=== PATIENT | female | born 1940 | race Caucasian/White ===

== ENCOUNTER 2017-01-23 00:30 | Emergency (ER) | payer MEDICARE ==
[2017-01-23 01:13] LABS: #Basophils 0.1 thou/uL (0.0-0.2); #Eosinphils 0.3 thou/uL (0.0-0.7); #Monocytes 0.9 thou/uL (0.11-0.59); #Neutrophils 11.6 thou/uL (1.40-6.50); %Basophils 0.5 % (0.0-1.0); %Eosinophils 2.1 % (0.0-10.0); %Lymphocytes 7.4 % (21.0-51.0); %Monocytes 6.3 % (0.0-10.0); Hematocrit 45.2 % (36.0-47.0); Mean Platelet Volume 7.6 fL (7.4-10.4); Red Blood Cell (RBC) Count 5.04 mill/uL (4.20-5.40); White Blood Cell (WBC) Count 13.9 thou/uL (4.8-10.8)
[2017-01-23 01:26] LABS: ALT (SGPT) 11 U/L (8-55); AST (SGOT) 17 U/L (5-34); Alkaline Phosphatase 95 U/L (40-150); Anion Gap 13 mmol/L (10-20); BUN (Urea Nitrogen) 14 mg/dL (9.8-20.1); Bilirubin, Total 0.8 mg/dL (0.2-1.2); Calc. Creatinine Clearance 0 mL/min (70-130); Calcium 9.4 mg/dL (7.8-10.44); Carbon Dioxide 25 mmol/L (23-31); Chloride 104 mmol/L (98-107); Estimated GFR-MDRD 77; Globulin 3.3 g/dL (2.4-3.5); Protein, Total 7.1 g/dL (6.0-8.3)
[2017-01-23] MEDS ORDERED: ISOVUE-370 76%-LOCM 1 ML ONE (11:46)
--- NOTE | 2017-01-23 15:08 | CT ---
PRELIMINARY REPORT/[facility]/EMERGENCY AFTER HOURS PROCEDURE: EXAM: CT Abdomen and Pelvis With Intravenous Contrast EXAM DATE/TIME: Exam ordered 01/23/2017 4:11 AM CLINICAL HISTORY: 76 years old, female; Pain; Abdominal pain; Generalized TECHNIQUE: Axial computed tomography images of the abdomen and pelvis with intravenous contrast. Coronal reformatted images were created and reviewed. CONTRAST: 100 mL of ISOVUE administered intravenously. COMPARISON: No relevant prior studies available. FINDINGS: Lower thorax: There is a 13 mm solid RIGHT middle lobe pulmonary nodule. There is subpleural atelecta sis of the dependent portions of the lungs. ABDOMEN: Liver: There are no focal liver lesions present. Gallbladder and bile ducts: The gallbladder is normal. There is no evidence of biliary ductal dilatio n. No calcified stones. Pancreas: The pancreas is normal. No ductal dilation. Spleen: The spleen is normal. Adrenals: The adrenal glands are normal. Kidneys and ureters: The kidneys are normal. No hydronephrosis. Stomach and bowel: There is pericolonic inflammatory stranding involving the transverse and descendin g colon compatible with colitis. The stomach is normal. The duodenum is unremarkable. Mild diverticulosis is present in the sigmoid and descending colon. There is incidental note of a lip tree within the descending colonic wall proximally. No obstruction. Appendix: A normal appendix is identified. PELVIS: Bladder: The bladder is normal. Reproductive: The uterus is normal. ABDOMEN and PELVIS: Intraperitoneal space: Normal. No free air. No significant fluid collection. Bones/joints: Patient is post LEFT hip arthroplasty. No acute fracture. No dislocation. Soft tissues: Normal. Vasculature: Normal. No abdominal aortic aneurysm. Lymph nodes: Normal. No enlarged lymph nodes. IMPRESSION: 1. There is pericolonic inflammatory stranding involving the transverse and descending colon compatib le with colitis. 2. There is a 13 mm solid RIGHT middle lobe pulmonary nodule. In both low-risk and high-risk patients consider chest CT follow-up at 3 months and if stable consider an additional follow-up CT at 18-24 m onths. Alternatively (or additionally) a PET/CT or tissue sampling could be performed. Thank you for allowing us to participate in the care of your patient. Dictated and Authenticated by: Natalio Henderson MD 01/23/2017 4:40 AM Central Time ([place] & [place]) FINAL REPORT ABDOMEN CT WITH CONTRAST PELVIC CT WITH CONTRAST: Date: 01/23/17 HISTORY: Rectal bleeding. Three episodes of diarrhea and abdominal cramping today. COMPARISON: None. TECHNIQUE: Abdomen and pelvic CT performed with IV contrast. Oral contrast was not administered. Coronal reforma tted images are submitted for interpretation. FINDINGS: This report is in agreement with the preliminary report by [facility]. There is a nodule in the right middl e lobe. Pericolonic fat stranding involving the transverse colon with associated bowel wall thickening. Corre late for colitis. Additional diverticula in the sigmoid colon noted. No diverticulitis. Normal calibe r appendix. Calcified uterine leiomyoma is noted. POS: [facility]
== END 2017-01-23 03:25 | disposition home or self-care (01) ==
LOC: ERS 00:30
DX: K64.4 Residual hemorrhoidal skin tags (principal); A09 Infectious gastroenteritis and colitis, unspecified; I10 Essential (primary) hypertension; E78.00 Pure hypercholesterolemia, unspecified; F41.9 Anxiety disorder, unspecified
CPT/HCPCS: 36415; 74177; 80053; 82274; 85025; 86850; 86900; 86901

== ENCOUNTER 2019-09-11 12:29 | Outpatient (CLI) | payer MEDICARE ==
--- NOTE | 2019-09-11 13:31 | CT ---
EXAM: CT of the chest with contrast HISTORY: Pulmonary nodule COMPARISON: 04/26/2017, 01/23/2017 TECHNIQUE: Multiple contiguous axial images were obtained in a CT the chest with contrast. Coronal an d sagittal reformats were performed. FINDINGS: HEART: Normal in size without focal cardiac abnormality. Callus cages are seen in the coronary arteri es. MEDIASTINUM: No hilar or mediastinal lymphadenopathy. LUNGS: Stable well-circumscribed 1.3 cm nodule in the right middle lobe. No other pulmonary nodules. PLEURAL SPACE: No pneumothorax or pleural effusion. CHEST WALL SOFT TISSUES: Unremarkable OSSEOUS STRUCTURES: Degenerative changes in the spine and shoulders. VISUALIZED SUBDIAPHRAGMATIC STRUCTURES: There is a stable diverticulum emanating from the posterior a spect of the stomach. IMPRESSION: Stable right middle lobe pulmonary nodule. This is been stable since 2017. No further follow-up is ne cessary
[2019-09-11] MEDS ORDERED: Iopamidol-370 76% 500 ML 1 ML ONE (15:42)
== END 2019-09-11 12:30 | disposition home or self-care (01) ==
LOC: BICCT 12:29
PROVIDERS: ATTEND Family Medicine
DX: R91.1 Solitary pulmonary nodule (principal)
CPT/HCPCS: 71260; Q9967

== ENCOUNTER 2023-02-06 07:27 | Inpatient (IN) | payer MEDICARE ==
[2023-02-06 08:35] LABS: #Basophils 0.1 thou/uL (0.0-0.2); #Eosinphils 0.1 thou/uL (0.0-0.7); #Monocytes 0.9 thou/uL (0.11-0.59); #Neutrophils 12.8 thou/uL (1.40-6.50); %Basophils 0.4 % (0.0-1.0); %Eosinophils 0.5 % (0.0-10.0); %Lymphocytes 3.4 % (21.0-51.0); %Monocytes 6.1 % (0.0-10.0); %Neutrophils 89.2 % (42.0-75.0); Hematocrit 36.4 % (36.0-47.0); Hemoglobin 10.4 g/dL (12.0-16.0); Mean Corpuscular HGB CONC 28.6 g/dL (32.0-36.0); Mean Corpuscular Hemoglobin 21.5 pg (27.0-31.0); Mean Corpuscular Volume 75.4 fl (78.0-98.0); Mean Platelet Volume 10.1 fL (7.4-10.4); Platelet Count 239 10x3/uL (130-400); RBC Distribution Width 20.6 % (11.5-14.5); Red Blood Cell (RBC) Count 4.83 mill/uL (4.20-5.40); White Blood Cell (WBC) Count 14.3 10x3/uL (4.8-10.8)
[2023-02-06 09:01] LABS: Anisocytosis MODERATE=16-30 cells HPF (0-5); CellaVision Operator ID LAB.NR; Hypochromia MARKED = >30 cells HPF (0-5); Macrocytosis SLIGHT = 6-15 cells HPF (0-5); Microcytosis SLIGHT = 6-15 cells HPF (0-5); Platelet Adequacy Comment Platelets Normal; Polychromasia SLIGHT = 2-3 cells HPF (0-2)
[2023-02-06 09:11] LABS: ALT (SGPT) 42 U/L (8-55); AST (SGOT) 68 U/L (5-34); Albumin 3.9 g/dL (3.4-4.8); Alkaline Phosphatase 94 U/L (40-110); Anion Gap 13 mmol/L (10-20); BUN (Urea Nitrogen) 12 mg/dL (9.8-20.1); Bilirubin, Total 0.9 mg/dL (0.2-1.2); Calc. Creatinine Clearance 0 mL/min (70-130); Calcium 9.2 mg/dL (7.8-10.44); Carbon Dioxide 23 mmol/L (23-31); Chloride 107 mmol/L (98-107); Estimated GFR 68; Globulin 3.2 g/dL (2.4-3.5); Glucose 101 mg/dL (83-110); Lipase 15 U/L (8-78); Potassium 4.1 mmol/L (3.5-5.1); Protein, Total 7.1 g/dL (5.8-8.1); Sodium 139 mmol/L (136-145)
[2023-02-06 09:13] LABS: Troponin I 0.111 ng/mL (< 0.028)
[2023-02-06] MEDS ORDERED: Furosemide 20 MG (2 mL) VIAL ONE (09:28)
[2023-02-06] MEDS ORDERED: methylPREDNISolone Sod Succ/PF 125 MG/2 ML VIAL ONE (09:29)
[2023-02-06] MEDS ORDERED: Amiodarone 200 MG TAB ONE (09:29)
[2023-02-06] MEDS ORDERED: Ipratropium/Albuterol 3 ML NEB ONE (09:31)
[2023-02-06] MEDS ORDERED: Apixaban 2.5 MG TAB PO SCH (10:00)
[2023-02-06 10:37] LABS: Magnesium 2.1 mg/dL (1.6-2.6)
[2023-02-06 11:00] LABS: SARS-CoV-2 NAA Rapid Test Not Detected (NotDetected)
[2023-02-06] MEDS ORDERED: Aspirin 325 MG TAB ONE (13:09)
[2023-02-06] MEDS ORDERED: Acetaminophen 325 MG TAB PO PRN (14:27)
[2023-02-06] MEDS ORDERED: Ondansetron PF 4 MG/2 ML Vial IVP PRN (14:27)
[2023-02-06] MEDS ORDERED: dilTIAZem 125 MG in Sodium Chloride 0.9% 100 ML IVPB SCH (15:15)
[2023-02-06 17:04] VITALS: BMI 400.5
[2023-02-06 17:36] LABS: Hemoglobin A1c 5.8 % (4.0-6.0)
[2023-02-06 17:43] LABS: Troponin I 0.737 ng/mL (< 0.028)
[2023-02-06] MEDS: Famotidine 20 MG TAB PO SCH (21:00)
[2023-02-06] MEDS: clonazePAM 0.5 MG TAB PO SCH (21:00)
[2023-02-06] MEDS: Oseltamivir 75 MG CAP PO SCH (21:00)
[2023-02-06] MEDS: Enoxaparin 100 MG (1 mL) SYRINGE SC SCH (21:01)
[2023-02-06] MEDS: Famotidine/PF 20 mg/2ml Vial SLOW IVP SCH (21:02)
[2023-02-07 04:50] LABS: #Monocytes 0.2 thou/uL (0.11-0.59); %Lymphocytes 9.2 % (21.0-51.0); %Monocytes 2.8 % (0.0-10.0); %Neutrophils 87.5 % (42.0-75.0); Hematocrit 34.3 % (36.0-47.0); Mean Corpuscular HGB CONC 29.2 g/dL (32.0-36.0); Mean Corpuscular Hemoglobin 21.9 pg (27.0-31.0); Mean Corpuscular Volume 75.2 fl (78.0-98.0); Mean Platelet Volume 10.4 fL (7.4-10.4); Platelet Count 229 10x3/uL (130-400); RBC Distribution Width 20.5 % (11.5-14.5); Red Blood Cell (RBC) Count 4.56 mill/uL (4.20-5.40); White Blood Cell (WBC) Count 5.7 10x3/uL (4.8-10.8)
[2023-02-07 05:18] LABS: Anion Gap 14 mmol/L (10-20); BUN (Urea Nitrogen) 15 mg/dL (9.8-20.1); Calc. Creatinine Clearance 83 mL/min (70-130); Calcium 9.2 mg/dL (7.8-10.44); Carbon Dioxide 24 mmol/L (23-31); Cardiac Risk 2.3 (Less than 4.5); Chloride 105 mmol/L (98-107); Cholesterol 134 mg/dl (< 200 Desired); Estimated GFR 68; Glucose 130 mg/dL (83-110); HDL Cholesterol 59 mg/dL (>60 Neg Risk); LDL Cholesterol, Calculated 66 mg/dL; Potassium 4.5 mmol/L (3.5-5.1); Sodium 138 mmol/L (136-145); Triglycerides 45 mg/dL (Less than 150)
[2023-02-07 05:19] LABS: Iron 16 ug/dL (50-170); Iron Binding Capacity, Total 408 mcg/dL (265-497)
[2023-02-07 05:20] LABS: ALT (SGPT) 30 U/L (8-55); AST (SGOT) 32 U/L (5-34); Albumin 3.6 g/dL (3.4-4.8); Alkaline Phosphatase 81 U/L (40-110); Bilirubin, Direct 0.4 mg/dL (0.1-0.3); Bilirubin, Total 0.9 mg/dL (0.2-1.2); Iron 16 ug/dL (50-170); Iron Binding Capacity, Total 411 mcg/dL (265-497); Protein, Total 6.7 g/dL (5.8-8.1)
[2023-02-07 05:42] LABS: Ferritin 34.46 ng/mL (10-291)
[2023-02-07] MEDS ORDERED: Furosemide 20 MG (2 mL) VIAL SLOW IVP SCH (06:00)
[2023-02-07] MEDS ORDERED: Electrolyte Replacement Protocol 1 EACH FS SCH (07:15)
[2023-02-07] MEDS ORDERED: Electrolyte Replacement Protocol FS PRN (07:30)
[2023-02-07] MEDS ORDERED: Enoxaparin 80 MG (0.8 mL) SYRINGE SC SCH (09:00)
[2023-02-07] MEDS ORDERED: Amiodarone 200 MG TAB PO SCH ×2 (09:00→10:48)
[2023-02-07] MEDS: Aspirin Chewable 81 MG TAB PO SCH (09:22)
[2023-02-07] MEDS: Famotidine 20 MG TAB PO SCH ×2 (09:22→21:12)
[2023-02-07] MEDS: clonazePAM 0.5 MG TAB PO SCH ×2 (09:22→21:13)
[2023-02-07] MEDS: PARoxetine 20 MG TAB PO SCH (09:23)
[2023-02-07] MEDS: Enoxaparin 100 MG (1 mL) SYRINGE SC SCH ×2 (09:23→21:10)
[2023-02-07] MEDS: Oseltamivir 75 MG CAP PO SCH ×2 (09:23→21:13)
[2023-02-07] MEDS: methylPREDNISolone Sod Succ/PF 125 MG/2 ML VIAL IVP SCH (11:10)
[2023-02-07] MEDS ORDERED: Magnesium 2 GM/50 ML(in water) 2 GM in Premix 1 BAG IVPB SCH (14:00)
[2023-02-07] MEDS: Famotidine/PF 20 mg/2ml Vial SLOW IVP SCH ×2 (14:34→21:14)
[2023-02-07] MEDS ORDERED: Rosuvastatin 10 MG TAB PO SCH (21:00)
[2023-02-07] MEDS: Rosuvastatin 10 MG TAB PO SCH (21:12)
[2023-02-07] MEDS: Amiodarone 200 MG TAB PO SCH (21:16)
[2023-02-08 04:54] LABS: #Monocytes 0.6 thou/uL (0.11-0.59); #Neutrophils 8.3 thou/uL (1.40-6.50); %Basophils 0.1 % (0.0-1.0); %Lymphocytes 5.5 % (21.0-51.0); %Monocytes 6.5 % (0.0-10.0); %Neutrophils 87.7 % (42.0-75.0); Hematocrit 32.3 % (36.0-47.0); Hemoglobin 9.5 g/dL (12.0-16.0); Mean Corpuscular HGB CONC 29.4 g/dL (32.0-36.0); Mean Corpuscular Hemoglobin 21.7 pg (27.0-31.0); Mean Corpuscular Volume 73.9 fl (78.0-98.0); Mean Platelet Volume 11.2 fL (7.4-10.4); Platelet Count 246 10x3/uL (130-400); RBC Distribution Width 20.2 % (11.5-14.5); Red Blood Cell (RBC) Count 4.37 mill/uL (4.20-5.40); White Blood Cell (WBC) Count 9.4 10x3/uL (4.8-10.8)
[2023-02-08 05:08] LABS: Anion Gap 13 mmol/L (10-20); BUN (Urea Nitrogen) 23 mg/dL (9.8-20.1); Calc. Creatinine Clearance 73 mL/min (70-130); Calcium 8.8 mg/dL (7.8-10.44); Carbon Dioxide 24 mmol/L (23-31); Chloride 103 mmol/L (98-107); Estimated GFR 58; Glucose 132 mg/dL (83-110); Magnesium 2.4 mg/dL (1.6-2.6); Potassium 4.1 mmol/L (3.5-5.1); Sodium 136 mmol/L (136-145)
[2023-02-08 06:27] LABS: Anisocytosis MODERATE=16-30 cells (100X) (0-5/hpf); Hypochromia SLIGHT = 6-15 cells (100X) (0-5/hpf); Microcytosis SLIGHT = 6-15 cells (100X) (0-5/hpf)
[2023-02-08 06:29] LABS: Ovalocytes SLIGHT = 2-5 cells (100X) (0-1/hpf); Platelet Adequacy Comment Platelets Normal; Polychromasia SLIGHT = 2-3 cells (100X) (0-2/hpf)
[2023-02-08] MEDS: Famotidine 20 MG TAB PO SCH ×2 (09:05→21:57)
[2023-02-08] MEDS: Enoxaparin 100 MG (1 mL) SYRINGE SC SCH ×2 (09:05→21:57)
[2023-02-08] MEDS: Amiodarone 200 MG TAB PO SCH (09:05)
[2023-02-08] MEDS: Aspirin Chewable 81 MG TAB PO SCH (09:06)
[2023-02-08] MEDS: clonazePAM 0.5 MG TAB PO SCH ×2 (09:06→21:56)
[2023-02-08] MEDS: PARoxetine 20 MG TAB PO SCH (09:06)
[2023-02-08] MEDS: Oseltamivir 75 MG CAP PO SCH ×2 (09:06→21:57)
[2023-02-08] MEDS: methylPREDNISolone Sod Succ/PF 125 MG/2 ML VIAL IVP SCH (09:08)
[2023-02-08] MEDS: Famotidine/PF 20 mg/2ml Vial SLOW IVP SCH ×2 (09:20→21:58)
[2023-02-08] MEDS ORDERED: Regadenoson 0.4 MG/5 ML SYRINGE ONE (10:26)
[2023-02-08] MEDS ORDERED: Communication Order-Pharmacy FS SCH (15:00)
[2023-02-08] MEDS ORDERED: Amiodarone 150 MG, Admixture Fee 1 EACH in Dextrose 5% in Water 100 ML IVPB SCH (15:30)
[2023-02-08] MEDS: Rosuvastatin 10 MG TAB PO SCH (21:56)
[2023-02-09 04:27] LABS: %Basophils 0.1 % (0.0-1.0); %Lymphocytes 7.8 % (21.0-51.0); %Monocytes 8.2 % (0.0-10.0); %Neutrophils 83.5 % (42.0-75.0); Hematocrit 34.7 % (36.0-47.0); Hemoglobin 10.1 g/dL (12.0-16.0); Mean Corpuscular HGB CONC 29.1 g/dL (32.0-36.0); Mean Corpuscular Hemoglobin 21.4 pg (27.0-31.0); Mean Corpuscular Volume 73.4 fl (78.0-98.0); Mean Platelet Volume 11.2 fL (7.4-10.4); Platelet Count 264 10x3/uL (130-400); RBC Distribution Width 20.6 % (11.5-14.5); Red Blood Cell (RBC) Count 4.73 mill/uL (4.20-5.40)
[2023-02-09] MEDS: Amiodarone 450 MG, Admixture Fee 1 EACH in Dextrose 5% in Water 250 ML IVPB SCH ×2 (04:28→20:11)
[2023-02-09 05:09] LABS: ALT (SGPT) 46 U/L (8-55); AST (SGOT) 41 U/L (5-34); Albumin 3.5 g/dL (3.4-4.8); Alkaline Phosphatase 74 U/L (40-110); Anion Gap 13 mmol/L (10-20); BUN (Urea Nitrogen) 18 mg/dL (9.8-20.1); Bilirubin, Total 0.8 mg/dL (0.2-1.2); Calc. Creatinine Clearance 83 mL/min (70-130); Calcium 8.7 mg/dL (7.8-10.44); Carbon Dioxide 24 mmol/L (23-31); Chloride 103 mmol/L (98-107); Estimated GFR 68; Globulin 2.9 g/dL (2.4-3.5); Glucose 114 mg/dL (83-110); Potassium 4.1 mmol/L (3.5-5.1); Protein, Total 6.4 g/dL (5.8-8.1); Sodium 136 mmol/L (136-145)
[2023-02-09] MEDS: Famotidine/PF 20 mg/2ml Vial SLOW IVP SCH ×2 (05:55→11:04)
[2023-02-09] MEDS: Oseltamivir 75 MG CAP PO SCH ×2 (05:57→20:12)
[2023-02-09] MEDS: clonazePAM 0.5 MG TAB PO SCH ×2 (05:57→20:12)
[2023-02-09] MEDS: Famotidine 20 MG TAB PO SCH ×2 (05:57→20:12)
[2023-02-09] MEDS: PARoxetine 20 MG TAB PO SCH (05:57)
[2023-02-09] MEDS: Aspirin Chewable 81 MG TAB PO SCH (05:59)
[2023-02-09] MEDS: methylPREDNISolone Sod Succ 40 MG VIAL IVP SCH ×2 (06:05→11:05)
[2023-02-09] MEDS ORDERED: Magnesium 2 GM/50 ML(in water) 2 GM in Premix 1 BAG IVPB SCH (08:00)
[2023-02-09] MEDS ORDERED: Lidocaine 1% (PF) 30 ML VIAL ONE (08:11)
[2023-02-09] MEDS ORDERED: Midazolam HCl 2 mg/2 ml Vial ONE (08:57)
[2023-02-09] MEDS ORDERED: Iopamidol 370 76% 100 ML VIAL ONE (09:58)
[2023-02-09] MEDS ORDERED: FLU VACC QS2023(65UP)/MF59C/PF 60 MCG/0.5 ML SYRINGE IM ONE (20:00)
[2023-02-09] MEDS: Enoxaparin 100 MG (1 mL) SYRINGE SC SCH (20:11)
[2023-02-09] MEDS: Rosuvastatin 10 MG TAB PO SCH (20:12)
[2023-02-10 04:44] LABS: #Monocytes 0.8 thou/uL (0.11-0.59); %Basophils 0.1 % (0.0-1.0); %Lymphocytes 11.2 % (21.0-51.0); %Monocytes 9.2 % (0.0-10.0); Hematocrit 38.6 % (36.0-47.0); Hemoglobin 10.6 g/dL (12.0-16.0); Mean Corpuscular HGB CONC 27.5 g/dL (32.0-36.0); Mean Corpuscular Hemoglobin 21.4 pg (27.0-31.0); Mean Platelet Volume 11.2 fL (7.4-10.4); Platelet Count 220 10x3/uL (130-400); RBC Distribution Width 21.5 % (11.5-14.5); Red Blood Cell (RBC) Count 4.95 mill/uL (4.20-5.40); White Blood Cell (WBC) Count 8.8 10x3/uL (4.8-10.8)
[2023-02-10 05:07] LABS: ALT (SGPT) 41 U/L (8-55); AST (SGOT) 51 U/L (5-34); Albumin 3.5 g/dL (3.4-4.8); Alkaline Phosphatase 71 U/L (40-110); Anion Gap 18 mmol/L (10-20); Anisocytosis MODERATE=16-30 cells (100X) (0-5/hpf); BUN (Urea Nitrogen) 22 mg/dL (9.8-20.1); Bilirubin, Total 0.9 mg/dL (0.2-1.2); Calc. Creatinine Clearance 74 mL/min (70-130); Calcium 8.8 mg/dL (7.8-10.44); Carbon Dioxide 17 mmol/L (23-31); Chloride 105 mmol/L (98-107); Estimated GFR 60; Globulin 3.5 g/dL (2.4-3.5); Glucose 122 mg/dL (83-110); Magnesium 2.6 mg/dL (1.6-2.6); Phosphorus 3.6 mg/dL (2.3-4.7); Potassium 5.3 mmol/L (3.5-5.1); Sodium 135 mmol/L (136-145)
[2023-02-10 05:08] LABS: Ovalocytes SLIGHT = 2-5 cells (100X) (0-1/hpf); Polychromasia MODERATE = 3-4 cells (100X) (0-2/hpf); Target Cells SLIGHT = 2-5 cells (100X) (0-1/hpf)
[2023-02-10 05:09] LABS: Platelet Adequacy Comment Platelets Normal
[2023-02-10] MEDS ORDERED: Sodium Polystyrene Sulfonate 15 GM (60 mL) BOT PO SCH (08:45)
[2023-02-10] MEDS ORDERED: Albuterol 2.5 MG (3 mL) NEB NEB SCH (08:45)
[2023-02-10] MEDS: clonazePAM 0.5 MG TAB PO SCH ×2 (09:33→20:39)
[2023-02-10] MEDS: Enoxaparin 100 MG (1 mL) SYRINGE SC SCH (09:33)
[2023-02-10] MEDS: Famotidine 20 MG TAB PO SCH ×2 (09:34→20:38)
[2023-02-10] MEDS: Oseltamivir 75 MG CAP PO SCH ×2 (09:34→20:39)
[2023-02-10] MEDS: Aspirin Chewable 81 MG TAB PO SCH (09:34)
[2023-02-10] MEDS: PARoxetine 20 MG TAB PO SCH (09:34)
[2023-02-10] MEDS: Famotidine/PF 20 mg/2ml Vial SLOW IVP SCH ×2 (09:34→18:57)
[2023-02-10] MEDS: Amiodarone 450 MG, Admixture Fee 1 EACH in Dextrose 5% in Water 250 ML IVPB SCH (17:32)
[2023-02-10 19:31] LABS: Bacteria/HPF 4+ HPF (None Seen); Bilirubin Negative (Negative); Blood, Urine Negative (Negative); CAUTI Indications for Culture Alt mental st,lethar; Clarity Clear (Clear); Glucose, Urine (Dipstick) Normal (Negative); Ketone, Urine Negative (Negative); Leukocyte Negative Leu/uL (Negative); Nitrite Negative (Negative); Protein, Urine (Dipstick) 20 mg/dL (Neg-Trace); RBC/HPF None Seen HPF (0-3); Squamous Epithelial 0-3 HPF (0-3); Urobilinogen Normal mg/dL (Less than 2); WBC/HPF 0-3 HPF (0-3); pH, Urine 5.5 (5.0-9.0)
[2023-02-10 19:37] LABS: Urine Culture Reflex No No
[2023-02-10] MEDS: Rosuvastatin 10 MG TAB PO SCH (20:38)
[2023-02-10] MEDS: Apixaban 5 MG TAB PO SCH (20:39)
[2023-02-11 06:37] LABS: #Neutrophils 8.3 thou/uL (1.40-6.50); %Basophils 0.1 % (0.0-1.0); %Lymphocytes 10.2 % (21.0-51.0); %Monocytes 9.2 % (0.0-10.0); Hematocrit 36.8 % (36.0-47.0); Hemoglobin 10.3 g/dL (12.0-16.0); Mean Corpuscular Hemoglobin 20.9 pg (27.0-31.0); Mean Corpuscular Volume 74.8 fl (78.0-98.0); Mean Platelet Volume 11.4 fL (7.4-10.4); Platelet Count 225 10x3/uL (130-400); RBC Distribution Width 20.8 % (11.5-14.5); Red Blood Cell (RBC) Count 4.92 mill/uL (4.20-5.40); White Blood Cell (WBC) Count 10.3 10x3/uL (4.8-10.8)
[2023-02-11 07:05] LABS: Anion Gap 14 mmol/L (10-20); BUN (Urea Nitrogen) 21 mg/dL (9.8-20.1); Calc. Creatinine Clearance 82 mL/min (70-130); Calcium 8.3 mg/dL (7.8-10.44); Carbon Dioxide 25 mmol/L (23-31); Chloride 106 mmol/L (98-107); Estimated GFR 69; Glucose 107 mg/dL (83-110); Magnesium 2.2 mg/dL (1.6-2.6); Potassium 3.8 mmol/L (3.5-5.1); Sodium 141 mmol/L (136-145)
[2023-02-11 08:20] LABS: Hypochromia SLIGHT = 6-15 cells (100X) (0-5/hpf); Microcytosis SLIGHT = 6-15 cells (100X) (0-5/hpf); Ovalocytes SLIGHT = 2-5 cells (100X) (0-1/hpf); Platelet Adequacy Comment Platelets Normal; Polychromasia SLIGHT = 2-3 cells (100X) (0-2/hpf)
[2023-02-11] MEDS: clonazePAM 0.5 MG TAB PO SCH ×2 (09:50→20:55)
[2023-02-11] MEDS: Famotidine 20 MG TAB PO SCH ×2 (09:50→20:55)
[2023-02-11] MEDS: methylPREDNISolone Sod Succ 40 MG VIAL IVP SCH (09:50)
[2023-02-11] MEDS: Famotidine/PF 20 mg/2ml Vial SLOW IVP SCH ×2 (09:51→22:55)
[2023-02-11] MEDS: PARoxetine 20 MG TAB PO SCH (09:51)
[2023-02-11] MEDS: Oseltamivir 75 MG CAP PO SCH (09:51)
[2023-02-11] MEDS: Apixaban 5 MG TAB PO SCH ×2 (09:51→20:55)
[2023-02-11] MEDS ORDERED: Ipratropium/Albuterol 3 ML NEB ONE (14:55)
[2023-02-11] MEDS ORDERED: PROPOFOL 200 MG/20 ML VIAL ONE (15:14)
[2023-02-11 15:47] LABS: Actual Bicarbonate (HCO3a) 26.5 mEq/L (22-28); Base Excess (BEa) 2.1 mEq/L (-2.0 to +3.0); CO2 Tension 40.4 mmHg (35.0-45.0); Calcium, Ionized (arterial) 1.11 mmol/L (1.12-1.30); Carboxyhemoglobin (COHb) 0.8 gm% (0.0-3.0); Hematocrit-ABG 32 % (36.0-47.0); Hemoglobin (Hb) 10.8 g/dL (12.0-16.0); O2 Tension (PaO2), arterial 167.1 mmHg (> 60.0); Potassium - ABG Lab 3.71 mmol/L (3.70-5.30); pH, Arterial 7.435 (7.35-7.45)
[2023-02-11] MEDS ORDERED: Amiodarone 200 MG TAB PO SCH (18:00)
[2023-02-11] MEDS: Amiodarone 200 MG TAB PO SCH (20:55)
[2023-02-11] MEDS: Rosuvastatin 10 MG TAB PO SCH (20:55)
[2023-02-12] MEDS: Amiodarone 200 MG TAB PO SCH (08:26)
[2023-02-12] MEDS: Apixaban 5 MG TAB PO SCH (08:26)
[2023-02-12] MEDS: Famotidine 20 MG TAB PO SCH (08:26)
[2023-02-12] MEDS: PARoxetine 20 MG TAB PO SCH (08:26)
[2023-02-12] MEDS: Famotidine/PF 20 mg/2ml Vial SLOW IVP SCH (08:27)
[2023-02-12] MEDS: clonazePAM 0.5 MG TAB PO SCH (08:27)
[2023-02-12] MEDS: methylPREDNISolone Sod Succ 40 MG VIAL IVP SCH (08:27)
[2023-02-12] MEDS ORDERED: Amiodarone 200 MG TAB PO SCH ×2 (09:00)
[2023-02-12 09:07] LABS: #Monocytes 1.2 thou/uL (0.11-0.59); #Neutrophils 14.5 thou/uL (1.40-6.50); %Basophils 0.1 % (0.0-1.0); %Lymphocytes 6.4 % (21.0-51.0); %Monocytes 6.9 % (0.0-10.0); %Neutrophils 86.1 % (42.0-75.0); Hematocrit 36.4 % (36.0-47.0); Hemoglobin 10.5 g/dL (12.0-16.0); Mean Corpuscular HGB CONC 28.8 g/dL (32.0-36.0); Mean Corpuscular Volume 72.9 fl (78.0-98.0); Mean Platelet Volume 11.7 fL (7.4-10.4); Platelet Count 264 10x3/uL (130-400); RBC Distribution Width 20.8 % (11.5-14.5); Red Blood Cell (RBC) Count 4.99 mill/uL (4.20-5.40); White Blood Cell (WBC) Count 16.9 10x3/uL (4.8-10.8)
[2023-02-12 09:46] LABS: Anion Gap 13 mmol/L (10-20); BUN (Urea Nitrogen) 27 mg/dL (9.8-20.1); Calc. Creatinine Clearance 70 mL/min (70-130); Calcium 8.7 mg/dL (7.8-10.44); Carbon Dioxide 28 mmol/L (23-31); Chloride 104 mmol/L (98-107); Estimated GFR 57; Glucose 120 mg/dL (83-110); Magnesium 2.4 mg/dL (1.6-2.6); Potassium 3.6 mmol/L (3.5-5.1); Sodium 141 mmol/L (136-145)
[2023-02-12 10:58] LABS: Anisocytosis SLIGHT = 6-15 cells (100X) (0-5/hpf); Microcytosis SLIGHT = 6-15 cells (100X) (0-5/hpf); Ovalocytes SLIGHT = 2-5 cells (100X) (0-1/hpf)
[2023-02-12 16:08] VITALS: TEMP 98.7
[2023-02-12 16:17] VITALS: BP 185/91
== END 2023-02-12 17:24 | disposition home or self-care (01) | DRG 280 ==
LOC: SUATTDRO 07:27 → ERS 07:27 → 2NO 14:05
PROVIDERS: ADMIT Family Medicine; ATTEND Internal Medicine
PROC: 4A023N7 Measurement of Cardiac Sampling and Pressure, Left Heart, Percutaneous Approach (ICD-10-PCS; principal; 2023-02-09)
PROC: B2151ZZ Fluoroscopy of Left Heart using Low Osmolar Contrast (ICD-10-PCS; 2023-02-09)
PROC: B2111ZZ Fluoroscopy of Multiple Coronary Arteries using Low Osmolar Contrast (ICD-10-PCS; 2023-02-09)
PROC: 4A033R1 Measurement of Arterial Saturation, Peripheral, Percutaneous Approach (ICD-10-PCS; 2023-02-11)
PROC: 5A2204Z Restoration of Cardiac Rhythm, Single (ICD-10-PCS; 2023-02-11)
PROC: B24BZZ4 Ultrasonography of Heart with Aorta, Transesophageal (ICD-10-PCS; 2023-02-11)
DX: I48.0 Paroxysmal atrial fibrillation (principal); I21.A1 Myocardial infarction type 2; J96.01 Acute respiratory failure with hypoxia; E87.1 Hypo-osmolality and hyponatremia; I50.32 Chronic diastolic (congestive) heart failure; J10.1 Influenza due to other identified influenza virus with other respiratory manifestations; Z88.1 Allergy status to other antibiotic agents; Z88.8 Allergy status to other drugs, medicaments and biological substances; Z79.899 Other long term (current) drug therapy; Z79.01 Long term (current) use of anticoagulants; E78.00 Pure hypercholesterolemia, unspecified; I10 Essential (primary) hypertension; Z98.890 Other specified postprocedural states; F41.9 Anxiety disorder, unspecified; Z11.52 Encounter for screening for COVID-19; E66.9 Obesity, unspecified; Z68.38 Body mass index [BMI] 38.0-38.9, adult; D50.9 Iron deficiency anemia, unspecified; E87.5 Hyperkalemia
CPT/HCPCS: 0241U; 36415; 36416; 70450; 70551; 71045; 78452; 80048; 80053; 80061; 80076; 81001; 82607; 82728; 82805; 83036; 83540; 83550; 83690; 83735; 83880; 84100; 84145; 84443; 84484; 85025; 85046; 85379; 86850; 86900; 86901; 87040; 92960; 93005; 93010; 93017; 93312; 93458; 93798; 94760; 96374; 96375; 99152; A9502; C1769; C1894; J0282; J1650; J1940; J2001; J2250; J2704; J2785; J2920; J2930; J3475; J7070; J7620; Q9967; S0028